=== PATIENT | male | born 1985 | race Two or more races ===

== ENCOUNTER 2017-08-03 22:21 | Emergency (ER) | payer SELFPAY ==
[~2017-08-03] VITALS: Ht 172.7 cm; Wt 108.9 kg
[2017-08-03 22:32] VITALS: Ht 172.7 cm; Wt 108.9 kg
[2017-08-04 00:57] VITALS: BP 123/76
== END 2017-08-04 00:57 | disposition home or self-care (01) ==
LOC: ED 22:21
DX: S40.012A Contusion of left shoulder, initial encounter (principal); V89.2XXA Person injured in unspecified motor-vehicle accident, traffic, initial encounter; Y93.79 Activity, other specified sports and athletics; Y92.89 Other specified places as the place of occurrence of the external cause; Y99.8 Other external cause status
CPT/HCPCS: J1885

== ENCOUNTER 2017-08-27 20:14 | Emergency (ER) | payer MEDICAID ==
[~2017-08-27] VITALS: Ht 172.7 cm; Wt 106.6 kg
[2017-08-27 20:21] VITALS: Ht 172.7 cm; Wt 106.6 kg
[2017-08-27 21:30] LABS: CALCIUM 9.3 mg/dL (8.5-10.1); CARBON DIOXIDE 24.7 mmol/L (21-32); CHLORIDE SERUM 102 mmol/L (98-107); CREATININE SERUM 0.9 mg/dL (0.7-1.3); GFR1 > 60 mL/min; GLUCOSE SERUM 104 mg/dL (74-106); POTASSIUM SERUM 3.8 mmol/L (3.5-5.1); SODIUM SERUM 137 mmol/L (136-145)
[2017-08-27 21:35] LABS: ALBUMIN 3.9 g/dL (3.4-5.0); ALKALINE PHOSPHATASE 127 U/L (46-116); ALT/SGPT 55 U/L (16-63); AST/SGOT 25 U/L (15-37); BILIRUBIN TOTAL 0.2 mg/dL (0.20-1.00)
[2017-08-27 21:37] LABS: BASOPHIL % 0.3 % (0-2); PLATELET COUNT 266 x10^3mcL (130-400); RED CELL DISTRIBUTION WIDTH 13.9 % (11.5-14.5)
[2017-08-27 22:36] VITALS: BP 145/92
== END 2017-08-27 22:36 | disposition home or self-care (01) ==
LOC: ED 20:14
PROVIDERS: Emergency Medicine
DX: R06.00 Dyspnea, unspecified (principal); K21.9 Gastro-esophageal reflux disease without esophagitis; F17.210 Nicotine dependence, cigarettes, uncomplicated
CPT/HCPCS: 36415; 85378